=== PATIENT | female | born 1960 | race Caucasian/White ===

== ENCOUNTER 2025-02-19 00:44 | Emergency (ER) | payer OTHER, SELFPAY ==
[2025-02-19 00:44] VITALS: BP 183/79; PULSE 81; RESP 18; TEMP 36.4; O2SAT 96
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
--- OUTSIDE RECORDS SUMMARY | 2025-02-19 00:46 | XMS_ITS | Continuity of Care Document ---
Author Organization [facility] Address [address] [facility] [address] [place] [address] Phone Care Team Providers Care Teacher Of The Deaf/Hard Of Hearing Name Role Phone Hannah Thompson Unavailable Unavailable Allergies, Adverse Reactions, Alerts Substance Reaction Status Criticality CODEINE PHOSPHATE severe mcleod Active No Informa tion acetaminophen severe mcleod Active No Information Medications Medication Instructions Dosage Effective Dates (start - stop) Status Comments meloxicam 15 mg Tab take 1 tablet (15MG) by ORAL route every day - Active Vicodin 5 mg-500 mg Tab take 1 tablet by ORAL route every 4 - 6 hours as needed for pain - Active ProAir HFA 90 mcg/Actuation Aerosol Inhaler inhale 2 puff by INHALATION route every 4 - 6 hours as needed - Active naproxen 500 mg Tab take 1 tablet by ORAL route 2 times every day with food - No Longer Active Procedures Procedure Date OFFICE VISIT/EST LEVEL III OFFICE VISIT/EST LEVEL III OFFICE VISIT/EST LEVEL III OFFICE VISIT/EST LEVEL III OXYGEN SATURATION OFFICE VISIT/EST LEVEL III FLU VACCINE, 3 YRS & > (Comm) 8 IMMUNIZATION ADMIN Advance Directives Directive Yes / No Effective Date File Name No Information Encounters Encounter Description Practice Location Reason(s) For Visit Diagnoses Date Provider Providers Copied on Encounter OFFICE VISIT/EST LEVEL III [facility], [address], [place], [place], [id number], tel:[phone] [facility] No Information Apr-2 3-201 0 [facility] Hannah. [address] [place] [address], [facility], . tel:[phone] OFFICE VISIT/EST LEVEL III [facility], [address], [id number], tel:[phone] [facility] No Information Apr-0 9-201 0 [facility] Hannah. [address] [place] [address], [facility], [place]. tel:[phone] [facility], [address], [id number], tel:[phone] [facility] No Information Apr-0 6-201 0 [facility] Hannah. [address] [place] [address], [facility], [place]. tel:[phone] OFFICE VISIT/EST LEVEL III [facility] [place], [address] [place] [address], [id number], [place] tel:[phone] [facility] No Information Sep-3 0-200 9 [facility] Hannah. [address] [place] [address], [facility], [place]. tel:[phone] OFFICE VISIT/EST LEVEL III [facility], [address], [id number], [place] tel:[phone] [facility] No Information Sep-0 8-200 9 Augustin Riddle. [address] [place], [place], [id number], [place]. tel:[phone] OFFICE VISIT/EST LEVEL III [facility], [address] [facility] [address], [place], [place], [id number], [place] tel:[phone] [facility] No Information Nov-1 3-200 8 No Information Family History Family Member Type Diagnosis Age At Onset Sister Problem (finding) migraine Mother Problem (finding) osteoporosis Mother Problem (finding) disorder of lung Mother Problem (finding) asthma Brother Problem (finding) Tobacco user Mother Problem (finding) hypertension Brother Problem (finding) migraine Brother Problem (finding) alcoholism Mother Problem (finding) Allergies Father Problem (finding) hypertension Payers Payer name Insurance type Covered alliance party ID Authoraryadominique fish(taylor) Francisco GUERRA [id number] Social History Type Description Quantity Date Captured Comments Sex Female Smoking Status No Information Chief Complaint And Reason For Visit No Information Reason For Referral Reason For Referral No Information History Of Present Illness Encounter Date Complaint History Of Prese nt Illness No Information Functional Status Date Functional Assessmen t No Information Instructions Date Instruction Additional Infor mation No Information Assessments Type Assessment Date No Information Patient Care Teams Name Effective Dates (start - stop) Status Members No Information
--- OUTSIDE RECORDS SUMMARY | 2025-02-19 00:46 | XMS_ITS | Continuity of Care Document ---
Author Organization [facility] Address [address] [place] [address] Phone Care Team Providers Care Technical Business Systems Analyst Name Role Phone Tejas Kaba MD, Amado Unavailable Unavaila ble Advance Directives Directive Yes / No Effective Date File Name No Information Encounters Encounter Description Practice Location Reason(s) For Visit Diagnoses Date Provider [facility], [address] [place] [address], [facility], tel:[phone] [address] [place] [address] No Information 2019 Tejas Fischer. [address] [place] [address], [facility], [place]. tel:[phone] [facility], [address] [place] [address], [facility], tel:[phone] [address] [place] [address] No Information 2010 Tejas Fischer. [address] [place] [address], [facility], . tel:[phone] Family History Family Member Type Diagnosis Age At Onset No Information Payers Payer name Insurance type Covered alliance party ID Authoriza tion(s) No Information Social History Type Description Quantity Date Captured Comments Sex Female Smoking Status No Information Chief Complaint And Reason For Visit No Information Plan Of Treatment Date Type Action Status Goal Influenza vaccine. Due on due Goal FOBT. Due on due Goal Tdap. Due on due Goal Mammogram. Due on 0 due Goal Depression screening. Due on due Goal Colonoscopy. Due on due Goal Td vaccine. Due on 20 due Goal Pap/HPV testing. Due on due Goal Lipid panel. Due on due History Of Present Illness Encounter Date Complaint History Of Prese nt Illness No Information Instructions Date Instruction Additional Infor mation No Information Assessments Type Assessment Date No Information
--- NOTE | 2025-02-19 01:02 | PC.NURSE ---
STERILE WATER WRAPS PLACED AROUND BILATERAL LOWER EXTREMITIES
[2025-02-19] MEDS: HYDROmorphone HCL INJ (*CRX) 2 MG/ML VIAL 0.5 MG IM (01:04)
[2025-02-19] MEDS: ONDANSETRON HCL ODT 4 MG TABLET PO (01:04)
[2025-02-19] MEDS: TETANUS,DIPHTHERIA,AC PERTUSSIS ADULT 0.5 ML (ADACEL) IM (01:05)
--- OUTSIDE RECORDS SUMMARY | 2025-02-19 01:24 | XMS_ITS | Encounter Summary ---
Author Organization [facility] Address [address] [place] [address] Care Team Providers Care Card Feeder Name Role Phone Darivn Eckert MD Primary Care Provider [phone] Jorge Mccormack MD Primary Care Provider [phone] Susan Jason MD Primary Care Provider [phone] Baldo Jamil NP Primary Care Provi rashawn Reason for Referral * Surgical (Routine) - Closed Specialty Diagnoses / Procedures Referred By Siobhan garner Referred To Contact Procedures Case request operating room: Revision RIGHT reverse total shoulder arthroplastynate notified Hector Nickerson MD [address] [place] [address] Phone: tel: fax: Referral ID Status Reason Start Date Expiration Date Visits Re quested Visits Authorized [id number] Closed 03/24/2021 04/23/2022 1 1 Encounter Details Date Type Department Care Team (Late st Contact Info) Description 03/24/2021 Prep for Procedure [facility] [address] [place] [address], 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 No / Unsure 03/25/2021 8:40 AM CDT documented as of this encounter Functional Status * RETIRED Are you deaf or do you have serious difficulty hearing Answer Date of Assessment Author Status No 12/20/2020 1:54 PM CDT Activ e * RETIRED Are you blind or do you have serious difficulty seeing, even when wearing glasses? Answer Date of Assessment Author Status No 12/20/2020 1:54 PM CDT Activ e * Do you have serious difficulty walking or climbing stairs? Answer Date of Assessment Author Status No 12/20/2020 1:54 PM CDT Tracy Akhtar RN Active * Do you have difficulty dressing or bathing? Answer Date of Assessment Author Status No 12/20/2020 1:54 PM CDT Tracy Akhtar RN Active * Because of a physical, mental, or emotional condition, do you have difficulty doing errands alone such as visiting a doctor's office or shopping? Answer Date of Assessment Author Status No 12/20/2020 1:54 PM CDT Tracy Akhtar RN Active documented as of this encounter Mental Status * Because of a physical, mental, or emotional condition, do you have serious difficulty concentrating, remembering, or making decisions? 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 COVID-19 Rule Out 03/24/2021 03/24/2021 03/25/2021 8:28 PM CDT COVID-19 Rule Out 07/07/2021 07/07/2021 07/07/2021 12:50 PM FILTER CLOTH MAKER COVID-19 Confirmed 07/07/2021 07/07/2021 12:32 AM FILTER CLOTH MAKER COVID-19 Rule Out 02/21/2024 02/21/2024 02/21/2024 10:41 AM CDT documented as of this encounter Care Teams Card Feeder Relationship Specialty Start Date End Date Darvin Eckert MD [address] [place] [address] PCP - General FAMILY PRACTICE 09/24/18 03/08/22 Jorge Mccormack MD [address] [place], [place] [id number] PCP - General FAMILY PRACTICE 03/09/22 11/21/22 Susan Jason MD [address] [place] [phone] PCP - General FAMILY PRACTICE 11/22/22 02/20/24 Baldo Jamil NP [address] [place] [phone] PCP - General Nurse Practitioner Family 02/21/24 documented as of this encounter
--- OUTSIDE RECORDS SUMMARY | 2025-02-19 01:24 | XMS_ITS | Continuity of Care Document ---
Author Organization [facility] Address [address] [place] [address] Phone Care Team Providers Care Poultry Field Service Technician Name Role Phone Tejas Kaba MD, Amado Unavailable Unavaila ble Advance Directives Directive Yes / No Effective Date File Name No Information Encounters Encounter Description Practice Location Reason(s) For Visit Diagnoses Date Provider [facility], [address] [place] [address], [facility], tel:[phone] [address] [place] [address] No Information 2019 Tejas Fischer. [address] [place] [address], [facility], [place]. tel:[phone] [facility], [address] [place] [address], [facility], tel:[phone] [address] [place] [address] No Information 2010 Tejas Fischer. [address] [place] [address], [facility], . tel:[phone] Family History Family Member Type Diagnosis Age At Onset No Information Payers Payer name Insurance type Covered libertarian ID Authoriza tion(s) No Information Social History [...]
--- OUTSIDE RECORDS SUMMARY | 2025-02-19 01:24 | XMS_ITS | Clinical Summary ---
Author Organization [facility] Address [facility] [place] [address] Care Team Providers Care Superintendent Police Name Role Phone Kobi Donaldson NP Primary Care Provi rashawn Allergies Active Allergy Reactions Criticality Noted Date Comments Acetaminophen-Codeine Headache 06/01/2023 Codeine Headache 12/17/2015 Fluticasone Other (see comment) 12/10/2020 Tongue blisters Medications VENTOLIN HFA 108 (90 Base) MCG/ACT inhaler Inhale 2 puffs into the lungs 4 (four) times daily as needed. 5 9 Active TRELEGY 100-62.5-25 MCG/INH AEROSOL POWDER, BREATH ACTIVATED Take 1 Inhaler by mouth daily. 0 Active SYMBICORT 160-4.5 MCG/ACT inhaler Inhale 1 puff into the lungs 2 (two) times a day. 0 Active ipratropium 0.02 % nebulizer solution Take 2.5 mLs (500 mcg total) by nebulization as needed for Wheezing. Active ipratropium-alb uterol (DUONEB) 0.5-2.5 (3) MG/3ML Solution 2 Active gabapentin (NEURONTIN) 600 MG tablet Take 1 tablet (600 mg total) by mouth 4 (four) times daily. 3 Active alendronate (FOSAMAX) 70 MG tablet 4 Active atorvastatin (LIPITOR) 40 MG tablet 4 Active venlafaxine XR (EFFEXOR-XR) 37.5 MG 24 hr capsule 4 Active methylPREDNISol one, ANA MARÍA, (MEDROL DOSEPAK) 4 MG tablet Take as directed 1 each 4 Active albuterol (PROVENTIL) (2.5 MG/3ML) 0.083% nebulizer solution Take 3 mLs (2.5 mg total) by nebulization every 4 (four) hours as needed for Wheezing. 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 Nicotine dependence in remission 04/07/2015 COPD (chronic obstructive pu lmonary disease) ([facility]) 01/26/2015 Resolved Problems Problem Noted Date Diagnosed Date Resolved Date Traumatic complete tear of l eft rotator cuff, subsequent encounter 04/13/2022 04/10/2023 Encounters Date Type Department Care Team Description 02/03/[address] [address] Susan Jason MD Appointment Request 12/29/[address] [address] Kobi Donaldson NP Appointment Request 11/20/2024 9:00 AM CDT - 11/20/2024 11:59 PM T Hospital Encounter [facility] [address] [facility] [place] [address] Kobi Donaldson NP Discharge Disposition: Home or Self Care (Routine Discharge) 11/20/2024 Travel from Last 3 Months Family History Medical History Relation Comments COPD Brother Heart Disease Father Hypertension Maternal Grandfather Kidney Disease Maternal Grandfather No Known Problems Maternal Grandmother COPD Mother No Known Problems Paternal Grandfather No Known Problems Paternal Grandmother COPD Sister Hypertension Sister Relation Status Comments Brother Father Maternal Grandfather Maternal Grandmother Mother Paternal Grandfather Paternal Grandmother Sister Alive Social History Tobacco Use Types Packs/Day Years Used Date Smoking Tobacco: Every Day Cigarettes 0.5 44 Smokeless Tobacco: Never Tobacco Cessation:Ready to Q uit: Not Asked; Counseling Given: Not Answered Alcohol Use Standard Drinks/Week Comments Not Currently 0 (1 standard drink = 0.6 oz pur e alcohol) Rarely Comments No Sex and Gender Information Value Date Recorded Sex Assigned at Female 10/03/2024 1:41 PM CDT Legal Sex Female 4:53 PM CDT Gender Identity Not on file Sexual Orientation Not on file 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 Not on file Not on file Last Filed Vital Signs Vital Sign Reading Time Taken Comments Blood Pressure 122/59 02/21/2024 10:10 AM CDT Pulse 107 02/21/2024 10:08 AM CDT Temperature 37.1 C (98.7 F) 02/21/2024 10:10 AM CDT Respiratory Rate 22 02/21/2024 10:10 AM CDT Oxygen Saturation 95% 02/21/2024 12:45 PM CDT Inhaled Oxygen Concentration - - Weight 37.2 kg (82 lb) 02/21/2024 10:10 AM CDT Height 154.9 cm (5' 1) 02/21/2024 10:08 AM CDT Body Mass Index 15.49 02/21/2024 10:08 AM CDT Plan of Treatment Health Maintenance Due Date Last Done Comments Colorectal Cancer Screening Colonoscopy (10 Years) 1960 Annual Physical 1963 Hepatitis C 1978 DTaP, Tdap and Td Vaccines (1 - Tdap) 1979 Zoster Vaccines (1 of 2) 2010 RSV Immunization or 60+ Years (1 - Risk 60-74 years 1-dose series) 2020 COVID-19 Vaccine (2 - season) 2024 08/22/2021 Mammogram Screening 10/10/2026 10/10/2024, 04/11/2023, 02/22/2023, Additional history exists Pneumococcal Vaccine: 50+ Years Completed 04/27/2022, 05/09/2013 Meningococcal B Vaccine Aged Out No l onger eligible based on patient's age to complete this topic Meningococcal Vaccine Aged Out No natalie guilherme eligible based on patient's age to complete this topic RSV Immunizations Under 20 Months Aged Out No longer eligible based on patient's age to complete this topic Medical Devices Implanted Type Area Crusher Foreman Device Identifier Shelf Expiration Date Model / Serial / Lot Schaller Suture Bio-Swivelock Arthrex 5.5 X 24.5 - [id number] Implanted:Qty: 1 on 06/10/2020 by Hector Nickerson MD at [facility] Schaller Right: Shoulder [employer] 02/05/2021 AR-2323BCM / / [id number] Suture Schaller, Swivelock Tenodesis, Biocomposite 7x19.1mm - [id number] Implanted:Qty: 1 on 06/10/2020 by Hector Nickerson MD at [facility] Schaller Right: Shoulder [employer] 03/08/2024 AR-1662BCC -7 / / [id number] Suture Schaller, Swivelock Tenodesis, Biocomposite 7x19.1mm - [id number] Implanted:Qty: 1 on 06/10/2020 by Hector Nickerson MD at [facility] Schaller Right: Shoulder [employer] 03/08/2024 AR-1662BCC -7 / / [id number] Schaller Suture Bio-Swivelock C Arthrex - [id number] Implanted:Qty: 1 on 06/10/2020 by Hector Nickerson MD at [facility] Schaller Right: Shoulder [employer] 01/06/2024 AR-2324BCC T / / [id number] Schaller Suture Bio-Swivelock C Arthrex White/Black 4.75 X 19.1mm - [id number] Implanted:Qty: 1 on 06/10/2020 by Hector Nickerson MD at [facility] Schaller Right: Shoulder [employer] 01/06/2024 AR-2324BCC TT / / [id number] Schaller Suture Bio-Swivelock C Arthrex White/Black 4.75 X 19.1mm - [id number] Implanted:Qty: 1 on 07/05/2022 by Hector Nickerson MD at [facility] Schaller Left: Shoulder [employer] [id number] 10/06/2025 AR-2324BCC TT / / [id number] Schaller Suture Bio-Swivelock C Arthrex - [id number] Implanted:Qty: 1 on 07/05/2022 by Hector Nickerson MD at [facility] Schaller Left: Shoulder [employer] [id number] 05/08/2024 AR-2324BCC T / / [id number] Schaller Suture Swivelock Self Punch 24.5mm Biocomposite - [id number] Implanted:Qty: 1 on 07/05/2022 by Hector Nickerson MD at [facility] Schaller Left: Shoulder [employer] [id number] 09/05/2025 AR-2324BCM / / [id number] Schaller Suture Swivelock Self Punch 24.5mm Biocomposite - [id number] Implanted:Qty: 1 on 07/05/2022 by Hector Nickerson MD at [facility] Schaller Left: Shoulder [employer] [id number] 01/05/2026 AR-2324BCM / / [id number] Stem Humeral 120mm 12mm Modular Global Unite Porocoat Standard Shoulder Sterile Platform Arthroplasty System - [id number] Implanted:Qty: 1 on 12/20/2020 by Hector Nickerson MD at [facility] Humeral Right: Shoulder DEPUY 09/05/2030 [id number] / / [id number] Cup Humeral Standard Delta Xtend Depuy - [id number] Implanted:Qty: 1 on 12/20/2020 by Hector Nickerson MD at [facility] Humeral Right: Shoulder DEPUY 10/06/2025 [id number] / / [id number] Cup Humeral Standard Delta Xtend Depuy - [id number] Implanted:Qty: 1 on 03/28/2021 by Hector Nickerson MD at [facility] Humeral Right: Shoulder DEPUY 10/06/2024 [id number] / / [id number] Screw Locking Depuy Delta Xtend Lg 36mm - [id number] Implanted:Qty: 1 on 12/20/2020 by Hector Nickerson MD at [facility] Screw Right: Shoulder DEPUY 10/06/2025 [id number] / / [id number] Screw Locking Depuy Delta Xtend Lg 30mm - [id number] Implanted:Qty: 1 on 12/20/2020 by Hector Nickerson MD at [facility] Screw Right: Shoulder DEPUY 09/05/2025 [id number] / / [id number] Screw Locking Depuy Delta Xtend Lg 24mm - [id number] Implanted:Qty: 1 on 12/20/2020 by Hector Nickerson MD at [facility] Screw Right: Shoulder DEPUY 09/05/2025 [id number] / / [id number] Screw Non Locking Depuy Delta Xtend Lg 18mm - [id number] Implanted:Qty: 1 on 12/20/2020 by Hector Nickerson MD at [facility] Screw Right: Shoulder DEPUY 02/05/2025 [id number] / / [id number] Metaglene Depuy Delta Xtend - [id number] Implanted:Qty: 1 on 12/20/2020 by Hector Nickerson MD at [facility] Shoulder Components Right: Shoulder DEPUY 05/08/2025 [id number] / / [id number] Epiphysis Delta Xtend Depuy Size 1 Right - [id number] Implanted:Qty: 1 on 12/20/2020 by Hector Nickerson MD at [facility] Shoulder Components Right: Shoulder DEPUY 10/06/2025 [id number] / / [id number] Biosurge Ii Tissue Source: [id number] Implanted:Qty: 1 on 06/10/2020 by Hector Nickerson MD at [facility] Right: Shoulder 10/06/2021 ABS-2016-0 / / [id number] Allosync Button, 12mm Implanted:Qty: 1 on 06/10/2020 by Hector Nickerson MD at [facility] Right: Shoulder 08/22/2023 ABS-2011 / / Lateralized Glenoshere Implanted:Qty: 1 on 12/20/2020 by Hector Nickerson MD at [facility] Right: Shoulder 10/06/2025 [id number] / / [id number] Delta Xtend Lateralized Glenoshpere Implanted:Qty: 1 on 03/28/2021 by Hector Nickerson MD at [facility] Right: Shoulder 02/05/2025 [id number] / / [id number] Implant System, Proximal Tenodesis Implanted:Qty: 1 on 07/05/2022 by Hector Nickerson MD at [facility] Left: Shoulder [employer] [id number] 10/06/2026 AR-2290 / / [id number] Explanted Type Area Crusher Foreman Device Identifier Shelf Expiration Date Model / Serial / Lot Schaller Suture Bio-Swivelock Arthrex 5.5 X 24.5 - [id number] Implanted:Qty: 1 Explanted:Qty: 1 on 06/10/[address] [facility] Schaller Right: Shoulder [employer] 12/07/2023 AR-2323BCM / / [id number] Schaller Suture Bio-Swivelock Arthrex 5.5 X 24.5 - [id number] Implanted:Qty: 1 Explanted:Qty: 1 on 06/10/[address] [facility] Schaller Right: Shoulder [employer] 12/07/2023 AR-2323BCM / / [id number] Drill Bit Depuy 2.5 - [id number] Explanted:Qty: 1 on 12/20/[address] [facility] Drill Right: Shoulder DEPUY [id number] / / Depuy Pin Explanted:Qty: 1 on 12/20/[address] [facility] Right: Shoulder [id number] / / Procedures Procedure Name Priority Date/Time Associated Diagnosis Comments MRI BRAIN WO CON Routine 11/20/2024 10:1 3 AM CDT Memory change MG SCREENING [place] VERNA DIGI Routine 10/10/2024 1:51 PM CDT Osteoporosis Visit for screening mammogram from Last 3 Months or Most Recently Relevant to Health Maintenance Results * MRI BRAIN WO CON (11/20/2024 10:13 AM CDT) Anatomical Region Laterality Modality Head Magnetic Resonan ce 11/20/2024 11:3 4 AM CDT Impressions 11/22/2024 11:48 AM CDT IMPRESSION: 1. No acute intracranial abnormality. 2. Mild small vessel disease. The attending radiologist has reviewed the image(s) and agrees with the content of this report. Ordered By: KOBI DONALDSON Interpreted By: Rosenda Sanchez MD, 11/20/2024 11:34 AM Narrative 11/22/2024 11:48 AM CDT [address] [place] [address] EXAMINATION: MRI brain without contrast. Exam time: 11/20/2024 9:51 AM INDICATION: Memory changes. TECHNIQUE: Sagittal and axial T1, axial and coronal T2, and axial FLAIR, gradient (T2*), and DWI images with ADC map reconstructions were obtained. COMPARISON: None available. FINDINGS: There is no evidence of acute infarct or restricted diffusion. There is no evidence of intracranial mass, mass effect or midline shift. The ventricles and subarachnoid spaces are symmetric and unremarkable for age. Few scattered T2/FLAIR hyperintensities within the hemispheric white matter and marissa, likely minimal chronic microvascular angiopathy. The doss white matter differentiation is preserved. There are no abnormal extra-axial collections. Gradient images reveal no hemorrhagic foci of susceptibility. The major intracranial arterial flow voids are grossly patent. The craniocervical junction junction, sellar content, and pineal region appear unremarkable. Visualized mastoid air cells, paranasal sinuses, and orbits appear unremarkable. Procedure Note Carlitos Donis MD - 11/22/[address] [place] [address] EXAMINATION: MRI brain without contrast. Exam time: 11/20/2024 9:51 AM INDICATION: Memory changes. TECHNIQUE: Sagittal and axial T1, axial and coronal T2, and axial FLAIR,gradient (T2*), and DWI images with ADC map reconstructions were obtained. COMPARISON: None available. FINDINGS: There is no evidence of acute infarct or restricted diffusion. There is noevidence of intracranial mass, mass effect or midline shift. Theventricles and subarachnoid spaces are symmetric and unremarkable for age.Few scattered T2/FLAIR hyperintensities within the hemispheric whitematter and marissa, likely minimal chronic microvascular angiopathy. The graywhite matter differentiation is preserved. There are no abnormalextra-axial collections. Gradient images reveal no hemorrhagic foci ofsusceptibility. The major intracranial arterial flow voids are grosslypatent. The craniocervical junction junction, sellar content, and pinealregion appear unremarkable. Visualized mastoid air cells, paranasalsinuses, and orbits appear unremarkable. IMPRESSION: 1. No acute intracranial abnormality. 2. Mild small vessel disease. The attending radiologist has reviewed the image(s) and agrees with thecontent of this report. Ordered By: KOBI DONALDSON Interpreted By: Rosenda Sanchez MD, 11/20/2024 11:34 AM us Kobi Donaldson DIVISION CONTROLLER MRI Fin al Result * MG SCREENING W LAMONT VERNA DIGI (10/10/2024 1:51 PM CDT) Anatomical Region Laterality Modality Breast Bilateral Mammography 10/10/2024 2:04 PM CDT Impressions 10/10/2024 2:04 PM CDT IMPRESSION: No suspicious change since the previous exams. Recommendation: 1: Routine Screening Bilateral in 1 Year Assessment: ACR BI-RADS 2 - BENIGN FINDING(S) Ordered By: KOBI DONALDSON Interpreted By: David Falcon MD, 10/10/2024 2:04 PM Narrative 10/10/2024 2:04 PM CDT [address] [place] [address] Examination: Digital screening mammogram with CAD. Clinical history: Asymptomatic patient presents for routine screening. Comparison: 02/22/2023, 08/22/2019, 2018, 07/23/2013. Technique: Bilateral digital mammograms. The exam was interpreted with the use of a computer-aided detection (CAD) system. Additional 3-D tomosynthesis images were acquired. Tissue density: The breasts are heterogeneously dense which may obscure small masses. Findings: The breast tissue is heterogeneously dense. The dense tissue may obscure some lesions mammographically. Benign-appearing calcification noted. No suspicious mass, microcalcification or area of architectural distortion can be identified. From a mammographic standpoint, routine followup in one year would seem adequate. Kobi abraham Result from Last 3 Months or Most Recently Relevant to Health Maintenance Additional Health Concerns Infection Onset Date Last Indicated 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 07/25/2018 Insurance AMBETTER Advance Directives * Full Code (Latest Code Status on File) Date Activated Date Inactivated Comments 03/28/2021 8:02 PM 03/29/2021 12:35 PM * Full Code Date Activated Date Inactivated Comments 12/20/2020 11:01 AM 12/21/2020 11:11 AM Care Teams Superintendent Police Relationship Specialty Start Date End Date Kobi Donaldson NP [address] [place] [phone] PCP - General Nurse Practitioner Family 02/21/24
--- OUTSIDE RECORDS SUMMARY | 2025-02-19 01:24 | XMS_ITS | Continuity of Care Document ---
Author Organization [facility] Address [address] [facility] [address] [place] [address] Phone Care Team Providers Care National Park Tour Guide Name Role Phone Hannah Thompson Unavailable Unavailable [...] Copied on Encounter OFFICE VISIT/EST LEVEL III [facility], [address], [place], [place], [id number], tel:[phone] No Information Apr-2 3-201 0 [facility] Hannah. [address] [place] [address], [facility], . tel:[phone] OFFICE VISIT/EST LEVEL III [facility], [address], [id number], tel:[phone] No Information Apr-0 9-201 0 [facility] Hannah. [address] [place] [address], [facility], [place]. tel:[phone] [facility], [address], [id number], tel:[phone] No Information Apr-0 6-201 0 [facility] Hannah. [address] [place] [address], [facility], [place]. tel:[phone] OFFICE VISIT/EST LEVEL III [facility] [place], [address] [place] [address], [id number], [place] tel:[phone] [facility] No Information Sep-3 0-200 9 [facility] Hannah. [address] [place] [address], [facility], [place]. tel:[phone] OFFICE VISIT/EST LEVEL III [facility], [address], [id number], [place] tel:[phone] [facility] No Information Sep-0 8-200 9 Augustin Riddle. [address] [place], [place], [id number], [place]. tel:[phone] OFFICE VISIT/EST LEVEL [facility], [address] [facility] [address], [place], [place], [id number], [place] tel:[phone] [facility] No Information Nov-1 3-200 8 [...] hypertension Payers Payer name Insurance type Covered republican ID Authoraryadominique fish(taylor) Francisco GUERRA [id number] Social History Type Description Quantity Date Captured [...]
--- OUTSIDE RECORDS SUMMARY | 2025-02-19 01:24 | XMS_ITS | Encounter Summary ---
Author Organization [facility] Address [address] [place] [address] Care Team Providers Care Energy Conservation Technician Name Role Phone Darvin Eckert MD Primary Care Provider [phone] Jorge Mccormack MD Primary Care Provider [phone] Susan Jason MD Primary Care Provider + [phone] Baldo Jamil NP Primary Care Provi rashawn Encounter Details Date Type Department Care Team (Late st Contact Info) Description 12/14/2018 Abstract SFL CONVERSION [address] [place] [id number] , Generic Conversion, Social History Tobacco Use Types Packs/Day Years Used Date Smoking Tobacco: Former Cigarettes Q uit: 2018 Smokeless Tobacco: Never Comments:quit in 2018 - smok ed for 44 years, 1/2 PPD Alcohol Use Standard Drinks/Week Comments Yes 0 (1 standard drink = 0.6 oz pur e alcohol) Rarely Comments Unknown Sex and Gender Information Value Date Recorded Sex Assigned at Female 10/03/2024 1:41 PM CDT Legal Sex Female 4:53 PM CDT Gender Identity Not on file Sexual Orientation Not on file 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 Not on file Not on file documented as of this encounter Plan of Treatment Not on file documented as of this encounter Visit Diagnoses Not on filedocumented in this encounter Additional Health Concerns Infection Onset Date Last Indicated Resolved Time 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 07/25/2018 COVID-19 Rule Out 06/07/2020 06/07/2020 06/09/2020 8:06 AM MID LEVEL NET DEVELOPER COVID-19 Rule Out 12/17/2020 12/17/202012/1712/17/2020 7:32 PM CDT COVID-19 Rule Out 03/20/2021 03/20/2021 03/21/2021 7:03 PM CDT COVID-19 Rule Out 03/24/2021 03/24/2021 03/25/2021 8:28 PM CDT COVID-19 Rule Out 07/07/2021 07/07/2021 07/07/2021 12:50 PM MID LEVEL NET DEVELOPER COVID-19 Confirmed 07/07/2021 07/07/2021 12:32 AM MID LEVEL NET DEVELOPER COVID-19 Rule Out 02/21/2024 02/21/2024 02/21/2024 10:41 AM CDT documented as of this encounter Care Teams Energy Conservation Technician Relationship Specialty Start Date End Date Darvin Eckert MD [address] [phone] PCP - General FAMILY PRACTICE 09/24/18 03/08/22 Jorge Mccormack MD [address] [place] [phone] PCP - General FAMILY PRACTICE 03/09/22 11/21/22 Susan Jason MD [address] [place] [phone] PCP - General FAMILY PRACTICE 11/22/22 02/20/24 Baldo Jamil NP [address] [place] [phone] PCP - General Nurse Practitioner Family 02/21/24 documented as of this encounter
--- NOTE | 2025-02-19 01:25 | PC.NURSE ---
PATIENT IS RESTING QUIETLY WITH BURN WRAPS ON BILATERAL LOWER EXTREMITIES.
[2025-02-19 01:34] VITALS: BP 145/72; PULSE 70; RESP 18; O2SAT 94
[2025-02-19 02:01] VITALS: BP 158/98; PULSE 78; RESP 18; O2SAT 99
--- OUTSIDE RECORDS SUMMARY | 2025-02-19 06:41 | XMS_ITS | Continuity of Care Document ---
Author Organization [facility] Address [address] [place] [address] Phone Care Team Providers Care Barrel Bung Remover And Dumper Name Role Phone Tejas Kaba MD, Amado Unavailable Unavaila ble Advance Directives Directive Yes / No Effective Date File Name No Information Encounters Encounter Description Practice Location Reason(s) For Visit Diagnoses Date Provider [facility], [address] [place] [address], [facility], tel:[phone] [address] [place] [address] No Information 2019 Tejas Fischer. [address] [place] [address], [facility], [place]. tel:[phone] [facility], [address] [place] [address], [facility], tel:[phone] [address] [place] [address] No Information 2010 Tejas Fischer. [address] [place] [address], [facility], . tel:[phone] Family History Family Member Type Diagnosis Age At Onset No Information Payers Payer name Insurance type Covered constitution party ID Authoriza tion(s) No Information Social History Type Description Quantity Date Captured Comments Sex Female Smoking Status No Information Chief Complaint And Reason For Visit No Information Plan Of Treatment Date Type Action Status Goal Lipid panel. Due on due Goal Pap/HPV testing. Due on due Goal Td vaccine. Due on 20 due Goal Colonoscopy. Due on due Goal Depression screening. Due on due Goal Mammogram. Due on 0 due Goal Tdap. Due on due Goal FOBT. Due on due Goal Influenza vaccine. Due on due History Of Present Illness Encounter Date Complaint History Of Prese nt Illness No Information Instructions Date Instruction Additional Infor mation No Information Assessments Type Assessment Date No Information
--- OUTSIDE RECORDS SUMMARY | 2025-02-19 06:41 | XMS_ITS | Continuity of Care Document ---
Author Organization [facility] Address [address] [facility] [address] [place] [address] Phone Care Team Providers Care Rn Dialysis Name Role Phone Hannah Thompson Unavailable Unavailable [...] Copied on Encounter OFFICE VISIT/EST LEVEL III [facility], [address], [place], [place], [id number], tel:[phone] [facility] No Information Apr-2 3-201 0 [facility] Hannah. [address] [place] [address], [facility] [place], . tel:[phone] OFFICE VISIT/EST LEVEL III [facility], [address], [id number], tel:[phone] [facility] No Information Apr-0 9-201 0 [facility] Hannah. [address] [place] [address], [facility] [place], [place]. tel:[phone] [facility], [address], [id number], tel:[phone] No Information Apr-0 6-201 0 [facility] Hannah. [address] [place] [address], [facility] [place], [place]. tel:[phone] OFFICE VISIT/EST LEVEL III [facility] [place], [address] [place] [address], [id number], [place] tel:[phone] No Information Sep-3 0-200 9 [facility] Hannah. [address] [place] [address], [facility] [place], [place]. tel:[phone] OFFICE VISIT/EST LEVEL III [facility], [address], [id number], [place] tel:[phone] No Information Sep-0 8-200 9 Augustin Riddle. [address] [place], [place], [id number], [place]. tel:[phone] OFFICE VISIT/EST LEVEL III [facility], [address] [facility] [address], [place], [place], [id number], [place] tel:[phone] [facility] No Information Nov-1 3-200 8 [...] hypertension Payers Payer name Insurance type Covered libertarian ID Authoraryadominique fish(taylor) Francisco GUERRA [id number] Social History Type Description Quantity Date Captured [...]
--- OUTSIDE RECORDS SUMMARY | 2025-02-19 06:41 | XMS_ITS | Clinical Summary ---
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 Nicotine dependence in remission 04/07/2015 COPD (chronic obstructive pu lmonary disease) ([facility]) 01/26/2015 Resolved Problems Problem Noted Date Diagnosed Date Resolved Date Traumatic complete tear of l eft rotator cuff, subsequent encounter 04/13/2022 04/10/2023 Encounters Date Type Department Care Team Description 02/03/[address] [address] Susan Jason MD Appointment Request 12/29/[address] [address] Kobi Donaldson NP Appointment Request 11/20/2024 9:00 AM CDT - 11/20/2024 11:59 PM T [facility] Encounter 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 Not [...] this topic Medical Devices Implanted Type Area Speed Reading Teacher Device Identifier Shelf Expiration Date Model / Serial / Lot [place] Suture Bio-Swivelock Arthrex 5.5 X 24.5 - [id number] Implanted:Qty: 1 on 06/10/2020 by Hector Nickerson MD at [facility] [place] Right: Shoulder [employer] 02/05/2021 AR-2323BCM / / [id number] Suture [place], Swivelock Tenodesis, Biocomposite 7x19.1mm - [id number] Implanted:Qty: 1 on 06/10/2020 by Hector Nickerson MD at [facility] [place] Right: Shoulder [employer] 03/08/2024 AR-1662BCC -7 / / [id number] Suture [place], Swivelock Tenodesis, Biocomposite 7x19.1mm - [id number] Implanted:Qty: 1 on 06/10/2020 by Hector Nickerson MD at [facility] [place] Right: Shoulder [employer] 03/08/2024 AR-1662BCC -7 / / [id number] [place] Suture Bio-Swivelock C Arthrex - [id number] Implanted:Qty: 1 on 06/10/2020 by Hector Nickerson MD at [facility] [place] Right: Shoulder [employer] 01/06/2024 AR-2324BCC T / / [id number] [place] Suture Bio-Swivelock C Arthrex White/Black 4.75 X 19.1mm - [id number] Implanted:Qty: 1 on 06/10/2020 by Hector Nickerson MD at [facility] [place] Right: Shoulder [employer] 01/06/2024 AR-2324BCC TT / / [id number] [place] Suture Bio-Swivelock C Arthrex White/Black 4.75 X 19.1mm - [id number] Implanted:Qty: 1 on 07/05/2022 by Hector Nickerson MD at [facility] [place] Left: Shoulder [employer] [id number] 10/06/2025 AR-2324BCC TT / / [id number] [place] Suture Bio-Swivelock C Arthrex - [id number] Implanted:Qty: 1 on 07/05/2022 by Hector Nickerson MD at [facility] [place] Left: Shoulder [employer] [id number] 05/08/2024 AR-2324BCC T / / [id number] [place] Suture Swivelock Self Punch 24.5mm Biocomposite - [id number] Implanted:Qty: 1 on 07/05/2022 by Hector Nickerson MD at [facility] [place] Left: Shoulder [employer] [id number] 09/05/2025 AR-2324BCM / / [id number] [place] Suture Swivelock Self Punch 24.5mm Biocomposite - [id number] Implanted:Qty: 1 on 07/05/2022 by Hector Nickerson MD at [facility] [place] Left: Shoulder [employer] [id number] 01/05/2026 AR-2324BCM / / [id number] Stem Humeral 120mm 12mm Modular Global Unite [place] Standard Shoulder Sterile Platform Arthroplasty System - [id number] Implanted:Qty: 1 on 12/20/2020 by Hector Nickerson MD at [facility] Humeral Right: Shoulder DEPUY 09/05/2030 [id number] / / [id number] Cup Humeral Standard Delta Xtend Depuy - [id number] Implanted:Qty: 1 on 12/20/2020 by Hector Nickerson MD at [facility] Humeral Right: Shoulder DEPUY 10/06/2025 [id number] / / [id number] Cup Humeral Standard Delta Xtend Depuy - [id number] Implanted:Qty: 1 on 03/28/2021 by Hector Nickerson MD at [facility] Humeral Right: Shoulder DEPUY 10/06/2024 [id number] / / [id number] Screw Locking Depuy Delta Xtend Lg 36mm - [id number] Implanted:Qty: 1 on 12/20/2020 by Hector Nickerson MD at [facility] Screw Right: Shoulder DEPUY 10/06/2025 [id number] / / [id number] Screw Locking Depuy Delta Xtend Lg 30mm - [id number] Implanted:Qty: 1 on 12/20/2020 by Hector Nickerson MD at [facility] Screw Right: Shoulder DEPUY 09/05/2025 [id number] / / [id number] Screw Locking Depuy Delta Xtend Lg 24mm - [id number] Implanted:Qty: 1 on 12/20/2020 by Hector Nickerson MD at [facility] Screw Right: Shoulder DEPUY 09/05/2025 [id number] / / [id number] Screw Non Locking Depuy Delta Xtend Lg 18mm - [id number] Implanted:Qty: 1 on 12/20/2020 by Hector Nickerson MD at [facility] Screw Right: Shoulder DEPUY 02/05/2025 [id number] / / [id number] Metaglene Depuy Delta Xtend - [id number] Implanted:Qty: 1 on 12/20/2020 by Hector Nickerson MD at [facility] Shoulder Components Right: Shoulder DEPUY 05/08/2025 [id number] / / [id number] Epiphysis Delta Xtend Depuy Size 1 Right - [id number] Implanted:Qty: 1 on 12/20/2020 by Hector Nickerson MD at [facility] Shoulder Components Right: Shoulder DEPUY 10/06/2025 [id number] / / [id number] Biosurge Ii Tissue Source: [id number] Implanted:Qty: 1 on 06/10/2020 by Hector Nickerson MD at [facility] Right: Shoulder 10/06/2021 ABS-2016-0 / / [id number] Allosync Button, 12mm Implanted:Qty: 1 on 06/10/2020 by Hector Nickerson MD at [facility] Right: Shoulder 08/22/2023 ABS-2011 / / Lateralized Glenoshere Implanted:Qty: 1 on 12/20/2020 by Hector Nickerson MD at [facility] Right: Shoulder 10/06/2025 [id number] / / [id number] Delta Xtend Lateralized Glenoshpere Implanted:Qty: 1 on 03/28/2021 by Hector Nickerson MD at [facility] Right: Shoulder 02/05/2025 [id number] / / [id number] Implant System, Proximal Tenodesis Implanted:Qty: 1 on 07/05/2022 by Hector Nickerson MD at [facility] Left: Shoulder [employer] [id number] 10/06/2026 AR-2290 / / [id number] Explanted Type Area Speed Reading Teacher Device Identifier Shelf Expiration Date Model / Serial / Lot [place] Suture Bio-Swivelock Arthrex 5.5 X 24.5 - [id number] Implanted:Qty: 1 Explanted:Qty: 1 on 06/10/2020 at [facility] [place] Right: Shoulder [employer] 12/07/2023 AR-2323BCM / / [id number] [place] Suture Bio-Swivelock Arthrex 5.5 X 24.5 - [id number] Implanted:Qty: 1 Explanted:Qty: 1 on 06/10/2020 at [facility] [place] Right: Shoulder [employer] 12/07/2023 AR-2323BCM / / [id number] Drill Bit Depuy 2.5 - [id number] Explanted:Qty: 1 on 12/20/2020 at [facility] Drill Right: Shoulder DEPUY [id number] / / Depuy Pin Explanted:Qty: 1 on 12/20/2020 at [facility] Right: Shoulder [id number] / / Procedures Procedure Name Priority Date/Time [...] content of this report. Ordered By: KOBI DONALDOSN Interpreted By: Rosenda Sanchez MD, 11/20/2024 11:34 AM Narrative 11/22/2024 11:48 AM CDT [address] [place] [address] EXAMINATION: MRI brain without contrast. Exam time: [...] Note Carlitos Donis MD - 11/22/[address] [place] [address] EXAMINATION: MRI brain without contrast. Exam time: [...] MD, 11/20/2024 11:34 AM us Kobi Donaldson ADJUNCT INSTRUCTOR MRI Fin al Result * MG SCREENING [...] 2:04 PM Narrative 10/10/2024 2:04 PM CDT [address] [place] [address] Examination: Digital screening mammogram with CAD. [...] 11:01 AM 12/21/2020 11:11 AM Care Teams Subcontract Manager Relationship Specialty Start Date End Date Kobi Donaldson NP [address] [place] [phone] PCP - General Nurse Practitioner Family 02/21/24
--- OUTSIDE RECORDS SUMMARY | 2025-02-19 06:41 | XMS_ITS | Encounter Summary ---
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 Not on file documented as of this encounter Plan of Treatment Not on file documented as of this encounter Visit Diagnoses Not on filedocumented in this encounter Additional Health Concerns Infection Onset Date Last Indicated Resolved Time 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 07/25/2018 COVID-19 Rule Out 06/07/2020 06/07/2020 06/09/2020 8:06 AM PLANT MECHANIC COVID-19 Rule Out 12/17/2020 12/17/202012/1712/17/2020 7:32 PM CDT COVID-19 Rule Out 03/20/2021 03/20/2021 03/21/2021 7:03 PM CDT COVID-19 Rule Out 03/24/2021 03/24/2021 03/25/2021 8:28 PM CDT COVID-19 Rule Out 07/07/2021 07/07/2021 07/07/2021 12:50 PM PLANT MECHANIC COVID-19 Confirmed 07/07/2021 07/07/2021 12:32 AM PLANT MECHANIC COVID-19 Rule Out 02/21/2024 02/21/2024 02/21/2024 10:41 AM CDT documented as of this encounter Care Teams Waste Disposal Leakage Tester Relationship Specialty Start Date End Date Darvin Eckert MD [address] [facility] [place] [address] PCP - General FAMILY PRACTICE 09/24/18 03/08/22 Jorge Mccormack MD [address] [place] [phone] PCP - General FAMILY PRACTICE 03/09/22 11/21/22 Susan Jason MD [address] [place] [phone] PCP - General FAMILY PRACTICE 11/22/22 02/20/24 Baldo Jamil NP [address] [place] [phone] PCP - General Nurse Practitioner Family 02/21/24 documented as of this encounter
--- OUTSIDE RECORDS SUMMARY | 2025-02-19 06:41 | XMS_ITS | Encounter Summary ---
Author Organization [facility] Address [address] [place] [address] Care Team Providers Care Fuller Brush Man Name Role Phone Darvin Eckert MD Primary Care Provider [phone] Jorge Mccormack MD Primary Care Provider [phone] Susan Jason MD Primary Care Provider + [phone] Baldo Jamil NP Primary Care Provi rashawn Reason for Referral * Surgical (Routine) - Closed Specialty Diagnoses / Procedures Referred By Siobhan garner Referred To Contact Procedures Case request operating room: Revision RIGHT reverse total shoulder arthroplastynate notified Hector Nickerson MD [address] [place] [address] Phone: tel: fax: Referral ID Status Reason Start Date Expiration Date Visits Re quested Visits Authorized [id number] Closed 03/24/2021 04/23/2022 1 1 Encounter Details Date Type Department Care Team (Late st Contact Info) Description 03/24/2021 Prep for Procedure [facility] [address] [place] [address], [facility] [address] [place] [address] Hector Nickerson MD [address] [place] [address] Social History Tobacco Use Types Packs/Day [...] 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 Not [...] Rule Out 07/07/2021 07/07/2021 07/07/2021 12:50 PM DISPUTE RESOLUTION ANALYST COVID-19 Confirmed 07/07/2021 07/07/2021 12:32 AM DISPUTE RESOLUTION ANALYST COVID-19 Rule Out 02/21/2024 02/21/2024 02/21/2024 10:41 AM CDT documented as of this encounter Care Teams Fuller Brush Man Relationship Specialty Start Date End Date Darvin Eckert MD [address] [facility] [place] [address] PCP - General FAMILY PRACTICE 09/24/18 03/08/22 Jorge Mccormack MD [address] [place], [place] [phone] PCP - General FAMILY PRACTICE 03/09/22 11/21/22 Susan Jason MD [address] [place] [phone] PCP - General FAMILY PRACTICE 11/22/22 02/20/24 Baldo Jamil NP [address] [place] [phone] PCP - General Nurse Practitioner Family 02/21/24 documented as of this encounter
== END 2025-02-19 02:16 | disposition home or self-care (01) ==
PROVIDERS: Emergency Provider Internal Medicine Critical Care Medicine
DX: T24.102A Burn of first degree of unspecified site of left lower limb, except ankle and foot, initial encounter (principal); T24.101A Burn of first degree of unspecified site of right lower limb, except ankle and foot, initial encounter; T31.0 Burns involving less than 10% of body surface; J44.9 Chronic obstructive pulmonary disease, unspecified; I10 Essential (primary) hypertension; Z99.81 Dependence on supplemental oxygen; X08.8XXA Exposure to other specified smoke, fire and flames, initial encounter; Z23 Encounter for immunization
CPT/HCPCS: 90471; 90715; 96372; 99283; A9270; J1171